=== PATIENT | female | born 1935 | race African-American/Black ===

== ENCOUNTER 2021-07-01 09:43 | Outpatient (CLI) | payer MEDICARE | END 2021-07-01 09:44 | disposition home or self-care (01) | LOC: MADRAD 09:43 | PROVIDERS: ATTEND Family Medicine | DX: M25.561 Pain in right knee (principal); G89.29 Other chronic pain ==

== ENCOUNTER 2022-02-22 14:35 | Outpatient (CLI) | payer MEDICARE | END 2022-02-22 14:36 | disposition home or self-care (01) | LOC: MADLAB 14:35 → MADRAD 14:36 | PROVIDERS: ATTEND Family Medicine | DX: M25.472 Effusion, left ankle (principal) ==

== ENCOUNTER 2023-04-25 12:04 | Inpatient (IN) | payer MEDICARE ==
[2023-04-25 14:47] VITALS: BMI 20.5
[2023-04-25] MEDS: Atorvastatin Calcium 10 MG TAB PO SCH (20:13)
[2023-04-25] MEDS: Metoprolol Tartrate 25 MG TAB PO SCH (20:14)
[2023-04-25] MEDS: traMADol HCl 50 MG TAB PO PRN (20:17)
[2023-04-26] MEDS: Levothyroxine Sodium 25 MCG TAB PO SCH (05:12)
[2023-04-26] MEDS: traMADol HCl 50 MG TAB PO PRN ×3 (05:20→20:40)
[2023-04-26] MEDS: Polyethylene Glycol 3350 17 GM Packet PO SCH (08:17)
[2023-04-26] MEDS: Aspirin 325 MG TAB PO SCH (08:18)
[2023-04-26] MEDS: Potassium Chloride 10 MEQ TAB PO SCH (08:18)
[2023-04-26] MEDS: Losartan 50 MG TAB PO SCH (08:18)
[2023-04-26] MEDS: Furosemide 20 MG TAB PO SCH (08:18)
[2023-04-26] MEDS: Metoprolol Tartrate 25 MG TAB PO SCH ×2 (08:18→20:41)
[2023-04-26] MEDS: Atorvastatin Calcium 10 MG TAB PO SCH (20:41)
[2023-04-27] MEDS: traMADol HCl 50 MG TAB PO PRN ×3 (04:58→20:56)
[2023-04-27] MEDS: Levothyroxine Sodium 25 MCG TAB PO SCH (04:59)
[2023-04-27] MEDS: Bisacodyl 5 MG TAB PO PRN (04:59)
[2023-04-27 07:28] LABS: Hematocrit 28.6 % (36.0-47.0); Hemoglobin 9.3 g/dL (12.0-16.0); Mean Corpuscular HGB CONC 32.4 g/dL (32.0-36.0); Mean Corpuscular Hemoglobin 29.2 pg (27.0-31.0); Mean Corpuscular Volume 89.9 fl (78.0-98.0); Mean Platelet Volume 6.7 fL (7.4-10.4); Platelet Count 147 10x3/uL (130-400); Red Blood Cell (RBC) Count 3.18 mill/uL (4.20-5.40); White Blood Cell (WBC) Count 9.1 10x3/uL (4.8-10.8)
[2023-04-27 07:39] LABS: Anion Gap 13 mmol/L (10-20); BUN (Urea Nitrogen) 10 mg/dL (9.8-20.1); Calc. Creatinine Clearance 50 mL/min (70-130); Calcium 9.1 mg/dL (7.8-10.44); Carbon Dioxide 31 mmol/L (23-31); Chloride 97 mmol/L (98-107); Estimated GFR 84; Glucose 145 mg/dL (83-110); Potassium 3.7 mmol/L (3.5-5.1); Sodium 137 mmol/L (136-145)
[2023-04-27] MEDS: Potassium Chloride 10 MEQ TAB PO SCH (09:39)
[2023-04-27] MEDS: Ferrous Gluconate 324 MG TAB PO SCH (09:39)
[2023-04-27] MEDS: Losartan 50 MG TAB PO SCH (09:40)
[2023-04-27] MEDS: Polyethylene Glycol 3350 17 GM Packet PO SCH (09:40)
[2023-04-27] MEDS: Metoprolol Tartrate 25 MG TAB PO SCH ×2 (09:40→20:54)
[2023-04-27] MEDS: Aspirin 325 MG TAB PO SCH (09:40)
[2023-04-27] MEDS: Furosemide 20 MG TAB PO SCH (09:40)
[2023-04-27] MEDS: Atorvastatin Calcium 10 MG TAB PO SCH (20:53)
[2023-04-27] MEDS: Acetaminophen 325 MG TAB PO PRN (20:57)
[2023-04-28] MEDS: Levothyroxine Sodium 25 MCG TAB PO SCH (04:46)
[2023-04-28] MEDS: traMADol HCl 50 MG TAB PO PRN ×2 (04:46→22:34)
[2023-04-28] MEDS ORDERED: Ondansetron ODT 4 MG TAB PO SCH (08:30)
[2023-04-28] MEDS: Ferrous Gluconate 324 MG TAB PO SCH (09:38)
[2023-04-28] MEDS: Furosemide 20 MG TAB PO SCH (09:38)
[2023-04-28] MEDS: Metoprolol Tartrate 25 MG TAB PO SCH ×2 (09:38→20:34)
[2023-04-28] MEDS: Potassium Chloride 10 MEQ TAB PO SCH (09:38)
[2023-04-28] MEDS: Polyethylene Glycol 3350 17 GM Packet PO SCH (09:38)
[2023-04-28] MEDS: Losartan 50 MG TAB PO SCH (09:38)
[2023-04-28] MEDS: Aspirin 325 MG TAB PO SCH (09:38)
[2023-04-28] MEDS: Bisacodyl 5 MG TAB PO PRN (13:24)
[2023-04-28] MEDS ORDERED: FLU VACC QS2023(65UP)/MF59C/PF 60 MCG/0.5 ML SYRINGE IM ONE (15:15)
[2023-04-28] MEDS: Atorvastatin Calcium 10 MG TAB PO SCH (20:34)
[2023-04-28] MEDS: Senokot S 8.6-50 MG TAB PO PRN (21:50)
[2023-04-29] MEDS: Acetaminophen 325 MG TAB PO PRN (03:33)
[2023-04-29] MEDS: Levothyroxine Sodium 25 MCG TAB PO SCH (06:02)
[2023-04-29] MEDS: Ferrous Gluconate 324 MG TAB PO SCH (09:15)
[2023-04-29] MEDS: Potassium Chloride 10 MEQ TAB PO SCH (09:15)
[2023-04-29] MEDS: Polyethylene Glycol 3350 17 GM Packet PO SCH (09:15)
[2023-04-29] MEDS: Losartan 50 MG TAB PO SCH (09:15)
[2023-04-29] MEDS: Aspirin 325 MG TAB PO SCH (09:15)
[2023-04-29] MEDS: Furosemide 20 MG TAB PO SCH (09:16)
[2023-04-29] MEDS: Metoprolol Tartrate 25 MG TAB PO SCH ×2 (09:16→20:45)
[2023-04-29] MEDS: Senokot S 8.6-50 MG TAB PO PRN ×2 (13:55→20:45)
[2023-04-29] MEDS: traMADol HCl 50 MG TAB PO PRN (20:45)
[2023-04-29] MEDS: Atorvastatin Calcium 10 MG TAB PO SCH (20:45)
[2023-04-30] MEDS: Levothyroxine Sodium 25 MCG TAB PO SCH (06:10)
[2023-04-30] MEDS ORDERED: Betamethasone 0.1% Cream 15 GM TUBE TOP PRN (07:05)
[2023-04-30] MEDS: Ferrous Gluconate 324 MG TAB PO SCH (08:52)
[2023-04-30] MEDS: Polyethylene Glycol 3350 17 GM Packet PO SCH (08:52)
[2023-04-30] MEDS: Furosemide 20 MG TAB PO SCH (08:52)
[2023-04-30] MEDS: Losartan 50 MG TAB PO SCH (08:52)
[2023-04-30] MEDS: Potassium Chloride 10 MEQ TAB PO SCH (08:52)
[2023-04-30] MEDS: Metoprolol Tartrate 25 MG TAB PO SCH ×2 (08:52→21:23)
[2023-04-30] MEDS: Aspirin 325 MG TAB PO SCH (08:52)
[2023-04-30] MEDS: Acetaminophen 325 MG TAB PO PRN ×2 (08:53→21:23)
[2023-04-30] MEDS: traMADol HCl 50 MG TAB PO PRN (18:01)
[2023-04-30] MEDS: Senokot S 8.6-50 MG TAB PO PRN ×2 (18:01→21:23)
[2023-04-30] MEDS: Atorvastatin Calcium 10 MG TAB PO SCH (21:23)
[2023-05-01] MEDS: traMADol HCl 50 MG TAB PO PRN ×2 (02:37→21:26)
[2023-05-01] MEDS: Levothyroxine Sodium 25 MCG TAB PO SCH (05:53)
[2023-05-01] MEDS: Metoprolol Tartrate 25 MG TAB PO SCH ×2 (08:22→21:15)
[2023-05-01] MEDS: Furosemide 20 MG TAB PO SCH (08:22)
[2023-05-01] MEDS: Losartan 50 MG TAB PO SCH (08:22)
[2023-05-01] MEDS: Polyethylene Glycol 3350 17 GM Packet PO SCH (08:23)
[2023-05-01] MEDS: Acetaminophen 325 MG TAB PO PRN ×2 (08:23→17:35)
[2023-05-01] MEDS: Aspirin 325 MG TAB PO SCH (08:23)
[2023-05-01] MEDS: Potassium Chloride 10 MEQ TAB PO SCH (08:23)
[2023-05-01] MEDS: Ferrous Gluconate 324 MG TAB PO SCH (08:23)
[2023-05-01] MEDS: Senokot S 8.6-50 MG TAB PO PRN ×2 (17:35→21:15)
[2023-05-01] MEDS: Atorvastatin Calcium 10 MG TAB PO SCH (21:15)
[2023-05-02] MEDS: Levothyroxine Sodium 25 MCG TAB PO SCH (05:46)
[2023-05-02] MEDS: traMADol HCl 50 MG TAB PO PRN ×2 (05:47→17:59)
[2023-05-02] MEDS: Polyethylene Glycol 3350 17 GM Packet PO SCH (09:33)
[2023-05-02] MEDS: Furosemide 20 MG TAB PO SCH (09:34)
[2023-05-02] MEDS: Aspirin 325 MG TAB PO SCH (09:34)
[2023-05-02] MEDS: Losartan 50 MG TAB PO SCH (09:34)
[2023-05-02] MEDS: Metoprolol Tartrate 25 MG TAB PO SCH ×2 (09:34→21:05)
[2023-05-02] MEDS: Ferrous Gluconate 324 MG TAB PO SCH (09:34)
[2023-05-02] MEDS: Potassium Chloride 10 MEQ TAB PO SCH (09:34)
[2023-05-02] MEDS: Atorvastatin Calcium 10 MG TAB PO SCH (21:05)
[2023-05-03] MEDS: Levothyroxine Sodium 25 MCG TAB PO SCH (05:20)
[2023-05-03] MEDS: traMADol HCl 50 MG TAB PO PRN ×2 (08:22→21:50)
[2023-05-03] MEDS: Potassium Chloride 10 MEQ TAB PO SCH (08:23)
[2023-05-03] MEDS: Polyethylene Glycol 3350 17 GM Packet PO SCH (08:23)
[2023-05-03] MEDS: Megestrol Acetate 400 MG/10 ML UDCUP PO SCH (08:23)
[2023-05-03] MEDS: Ferrous Gluconate 324 MG TAB PO SCH (08:23)
[2023-05-03] MEDS: Aspirin 325 MG TAB PO SCH (08:23)
[2023-05-03] MEDS: Furosemide 20 MG TAB PO SCH (08:24)
[2023-05-03] MEDS: Metoprolol Tartrate 25 MG TAB PO SCH ×2 (08:24→21:40)
[2023-05-03] MEDS: Losartan 50 MG TAB PO SCH (08:24)
[2023-05-03] MEDS: Simethicone Chewable 80 MG TAB PO PRN (13:24)
[2023-05-03] MEDS: Atorvastatin Calcium 10 MG TAB PO SCH (21:40)
[2023-05-03] MEDS: Acetaminophen 325 MG TAB PO PRN (21:40)
[2023-05-03] MEDS ORDERED: traMADol HCl 50 MG TAB ONE (21:48)
[2023-05-03] MEDS ORDERED: ALPRAZolam 0.25 MG TAB PO PRN (23:43)
[2023-05-03] MEDS ORDERED: Senokot S 8.6-50 MG TAB PO SCH (23:45)
[2023-05-03] MEDS ORDERED: ALPRAZolam 0.25 MG TAB PO SCH (23:45)
[2023-05-04] MEDS ORDERED: hydrOXYzine 25 MG TAB PO SCH (00:15)
[2023-05-04] MEDS: Melatonin 3 MG TAB PO PRN ×3 (01:56→23:37)
[2023-05-04] MEDS: Acetaminophen 325 MG TAB PO PRN ×3 (04:56→23:37)
[2023-05-04] MEDS: Levothyroxine Sodium 25 MCG TAB PO SCH (04:57)
[2023-05-04] MEDS: Aspirin 325 MG TAB PO SCH (09:41)
[2023-05-04] MEDS: Losartan 50 MG TAB PO SCH (09:41)
[2023-05-04] MEDS: Senokot S 8.6-50 MG TAB PO SCH ×2 (09:43→19:17)
[2023-05-04] MEDS: Metoprolol Tartrate 25 MG TAB PO SCH ×2 (09:43→19:17)
[2023-05-04] MEDS: Furosemide 20 MG TAB PO SCH (09:44)
[2023-05-04] MEDS: traMADol HCl 50 MG TAB PO PRN ×2 (09:47→20:12)
[2023-05-04] MEDS: Potassium Chloride 10 MEQ TAB PO SCH (11:16)
[2023-05-04] MEDS: Ferrous Gluconate 324 MG TAB PO SCH (11:16)
[2023-05-04] MEDS: Megestrol Acetate 400 MG/10 ML UDCUP PO SCH (11:16)
[2023-05-04] MEDS: Polyethylene Glycol 3350 17 GM Packet PO SCH (11:16)
[2023-05-04] MEDS ORDERED: Lantiseptic Ointment 130 GM JAR TOP PRN (18:10)
[2023-05-04] MEDS: Atorvastatin Calcium 10 MG TAB PO SCH (20:13)
[2023-05-05] MEDS: Acetaminophen 325 MG TAB PO PRN (05:02)
[2023-05-05] MEDS: Levothyroxine Sodium 25 MCG TAB PO SCH (05:02)
[2023-05-05] MEDS: Potassium Chloride 10 MEQ TAB PO SCH (09:11)
[2023-05-05] MEDS: Losartan 50 MG TAB PO SCH (09:11)
[2023-05-05] MEDS: Ferrous Gluconate 324 MG TAB PO SCH (09:11)
[2023-05-05] MEDS: Megestrol Acetate 400 MG/10 ML UDCUP PO SCH (09:11)
[2023-05-05] MEDS: Furosemide 20 MG TAB PO SCH (09:12)
[2023-05-05] MEDS: Senokot S 8.6-50 MG TAB PO SCH ×2 (09:12→20:29)
[2023-05-05] MEDS: Metoprolol Tartrate 25 MG TAB PO SCH ×2 (09:12→20:29)
[2023-05-05] MEDS: Aspirin 325 MG TAB PO SCH (09:12)
[2023-05-05] MEDS: Polyethylene Glycol 3350 17 GM Packet PO SCH (09:12)
[2023-05-05] MEDS: Atorvastatin Calcium 10 MG TAB PO SCH (20:29)
[2023-05-05] MEDS: traMADol HCl 50 MG TAB PO PRN (20:29)
[2023-05-06] MEDS: traMADol HCl 50 MG TAB PO PRN (03:18)
[2023-05-06] MEDS: Levothyroxine Sodium 25 MCG TAB PO SCH (05:11)
[2023-05-06 05:43] LABS: Hematocrit 24.2 % (36.0-47.0); Hemoglobin 7.7 g/dL (12.0-16.0); Mean Corpuscular HGB CONC 31.7 g/dL (32.0-36.0); Mean Corpuscular Hemoglobin 28.6 pg (27.0-31.0); Mean Corpuscular Volume 90.1 fl (78.0-98.0); Mean Platelet Volume 6.7 fL (7.4-10.4); Platelet Count 316 10x3/uL (130-400); RBC Distribution Width 12.8 % (11.5-14.5); Red Blood Cell (RBC) Count 2.68 mill/uL (4.20-5.40); White Blood Cell (WBC) Count 7.7 10x3/uL (4.8-10.8)
[2023-05-06] MEDS ORDERED: FLU VACC QS2023-24(6MOS UP)/PF 60 MCG/0.5 ML SYRINGE IM ONE ×2 (06:57→20:54)
[2023-05-06] MEDS: Simethicone Chewable 80 MG TAB PO PRN (09:38)
[2023-05-06] MEDS: Metoprolol Tartrate 25 MG TAB PO SCH ×2 (09:39→21:03)
[2023-05-06] MEDS: Megestrol Acetate 400 MG/10 ML UDCUP PO SCH (09:39)
[2023-05-06] MEDS: Ferrous Gluconate 324 MG TAB PO SCH (09:39)
[2023-05-06] MEDS: Aspirin 325 MG TAB PO SCH (09:39)
[2023-05-06] MEDS: Furosemide 20 MG TAB PO SCH (09:39)
[2023-05-06] MEDS: Losartan 50 MG TAB PO SCH (09:39)
[2023-05-06] MEDS: Polyethylene Glycol 3350 17 GM Packet PO SCH (09:40)
[2023-05-06] MEDS: Senokot S 8.6-50 MG TAB PO SCH ×2 (09:40→20:33)
[2023-05-06] MEDS: Potassium Chloride 10 MEQ TAB PO SCH (09:40)
[2023-05-06] MEDS: Meloxicam 7.5 MG TAB PO SCH ×2 (15:33→17:07)
[2023-05-06] MEDS ORDERED: traMADol HCl 50 MG TAB PO PRN (16:55)
[2023-05-06] MEDS: Acetaminophen 325 MG TAB PO PRN (21:04)
[2023-05-06] MEDS: Atorvastatin Calcium 10 MG TAB PO SCH (21:04)
[2023-05-07] MEDS ORDERED: FLU VACC QS2023-24(6MOS UP)/PF 60 MCG/0.5 ML SYRINGE IM ONE (01:59)
[2023-05-07] MEDS: Levothyroxine Sodium 25 MCG TAB PO SCH ×2 (06:55→07:47)
[2023-05-07 07:24] VITALS: BP 185/79; TEMP 97.7
[2023-05-07] MEDS: Polyethylene Glycol 3350 17 GM Packet PO SCH (07:47)
[2023-05-07] MEDS: Megestrol Acetate 400 MG/10 ML UDCUP PO SCH (07:47)
[2023-05-07] MEDS: Losartan 50 MG TAB PO SCH (07:47)
[2023-05-07] MEDS: Acetaminophen 325 MG TAB PO PRN (07:47)
[2023-05-07] MEDS: Ferrous Gluconate 324 MG TAB PO SCH (07:48)
[2023-05-07] MEDS: Furosemide 20 MG TAB PO SCH (07:49)
[2023-05-07] MEDS: Senokot S 8.6-50 MG TAB PO SCH (07:49)
[2023-05-07] MEDS: Metoprolol Tartrate 25 MG TAB PO SCH (07:49)
[2023-05-07] MEDS: Potassium Chloride 10 MEQ TAB PO SCH (07:49)
[2023-05-07] MEDS ORDERED: Meloxicam 7.5 MG TAB PO SCH (09:00)
== END 2023-05-07 09:40 | disposition home or self-care (01) | DRG 560 ==
LOC: MADMS 14:38
PROVIDERS: ADMIT Emergency Medicine; ATTEND Family Medicine
DX: Z47.1 Aftercare following joint replacement surgery (principal); E87.1 Hypo-osmolality and hyponatremia; R53.81 Other malaise; E78.5 Hyperlipidemia, unspecified; E03.9 Hypothyroidism, unspecified; I35.0 Nonrheumatic aortic (valve) stenosis; K59.03 Drug induced constipation; T40.2X5A Adverse effect of other opioids, initial encounter; E78.2 Mixed hyperlipidemia; E87.6 Hypokalemia; N18.2 Chronic kidney disease, stage 2 (mild); I12.9 Hypertensive chronic kidney disease with stage 1 through stage 4 chronic kidney disease, or unspecified chronic kidney disease; E11.22 Type 2 diabetes mellitus with diabetic chronic kidney disease; D63.1 Anemia in chronic kidney disease; M17.11 Unilateral primary osteoarthritis, right knee; R10.9 Unspecified abdominal pain; F41.9 Anxiety disorder, unspecified; G47.00 Insomnia, unspecified; D50.9 Iron deficiency anemia, unspecified; E63.9 Nutritional deficiency, unspecified; Z96.651 Presence of right artificial knee joint; R63.0 Anorexia; Z68.20 Body mass index [BMI] 20.0-20.9, adult; Z88.5 Allergy status to narcotic agent; Z88.2 Allergy status to sulfonamides; Z88.8 Allergy status to other drugs, medicaments and biological substances; Z79.890 Hormone replacement therapy; Z79.82 Long term (current) use of aspirin; Z79.899 Other long term (current) drug therapy; Z98.890 Other specified postprocedural states; Z86.73 Personal history of transient ischemic attack (TIA), and cerebral infarction without residual deficits
CPT/HCPCS: 36415; 74018; 80048; 85027; 90471; 90686; G0008; Q0162

== ENCOUNTER 2023-05-16 04:54 | Emergency (ER) | payer MEDICARE ==
[2023-05-16] MEDS ORDERED: Simethicone Chewable 80 MG TAB ONE (05:23)
[2023-05-16 05:43] LABS: #Eosinphils 0.1 thou/uL (0.0-0.7); #Monocytes 0.3 thou/uL (0.11-0.59); %Basophils 0.4 % (0.0-1.0); %Eosinophils 0.8 % (0.0-10.0); %Lymphocytes 13.8 % (21.0-51.0); Hematocrit 29.5 % (36.0-47.0); Hemoglobin 9.3 g/dL (12.0-16.0); Mean Corpuscular HGB CONC 31.5 g/dL (32.0-36.0); Mean Corpuscular Hemoglobin 28.4 pg (27.0-31.0); Mean Platelet Volume 6.8 fL (7.4-10.4); Platelet Count 330 10x3/uL (130-400); RBC Distribution Width 13.7 % (11.5-14.5); Red Blood Cell (RBC) Count 3.28 mill/uL (4.20-5.40); White Blood Cell (WBC) Count 7.4 10x3/uL (4.8-10.8)
[2023-05-16] MEDS ORDERED: Ondansetron PF 4 MG/2 ML Vial ONE (05:48)
[2023-05-16 05:57] LABS: ALT (SGPT) 26 U/L (8-55); AST (SGOT) 59 U/L (5-34); Alkaline Phosphatase 73 U/L (40-110); Anion Gap 14 mmol/L (10-20); BUN (Urea Nitrogen) 11 mg/dL (9.8-20.1); Bilirubin, Total 0.5 mg/dL (0.2-1.2); Calc. Creatinine Clearance 0 mL/min (70-130); Calcium 9.2 mg/dL (7.8-10.44); Carbon Dioxide 20 mmol/L (23-31); Chloride 108 mmol/L (98-107); Estimated GFR 81; Globulin 3.7 g/dL (2.4-3.5); Glucose 127 mg/dL (83-110); Potassium 3.9 mmol/L (3.5-5.1); Protein, Total 7.7 g/dL (5.8-8.1); Sodium 138 mmol/L (136-145)
[2023-05-16 07:00] LABS: Bilirubin Negative (Negative); Blood, Urine Trace (Negative); Clarity Clear (Clear); Glucose, Urine (Dipstick) Negative (Negative); Ketone, Urine Negative (Negative); Leukocyte Negative (Negative); Nitrite Negative (Negative); Protein, Urine (Dipstick) > or equal to 300 mg/dL (Neg-Trace); RBC/HPF 0-3 HPF (0-3); Urobilinogen 0.2 mg/dL (Less than 2); pH, Urine 5.5 (5.0-9.0)
[2023-05-16 07:01] LABS: Bacteria/HPF Rare-Few HPF (None Seen); CAUTI Indications for Culture Pelvic or flank pain; Squamous Epithelial 0-3 HPF (0-3); WBC/HPF 0-3 HPF (0-3)
[2023-05-16 07:02] LABS: Urine Culture Reflex No No
[2023-05-16] MEDS ORDERED: Iopamidol 370 76% 100 ML VIAL ONE (10:33)
== END 2023-05-16 07:16 | disposition home or self-care (01) ==
LOC: MADERS 04:54
DX: K92.2 Gastrointestinal hemorrhage, unspecified (principal); D50.0 Iron deficiency anemia secondary to blood loss (chronic); E11.9 Type 2 diabetes mellitus without complications; E03.9 Hypothyroidism, unspecified; E78.5 Hyperlipidemia, unspecified; I10 Essential (primary) hypertension; E78.00 Pure hypercholesterolemia, unspecified
CPT/HCPCS: 74177; 80053; 81001; 82274; 85025; 96374; J2405; Q9967

== ENCOUNTER 2023-06-16 22:04 | Emergency (ER) | payer MEDICARE ==
[2023-06-16] MEDS ORDERED: Acetaminophen 500 MG TAB ONE (22:42)
[2023-06-16] MEDS ORDERED: Ketorolac Tromethamine 30 MG/ML VIAL ONE (22:42)
[2023-06-17 00:42] LABS: #Basophils 0.1 thou/uL (0.0-0.2); #Lymphocytes 1.7 thou/uL (1.20-3.40); #Monocytes 0.5 thou/uL (0.11-0.59); #Neutrophils 5.5 thou/uL (1.40-6.50); %Basophils 0.6 % (0.0-1.0); %Eosinophils 0.5 % (0.0-10.0); %Lymphocytes 22.2 % (21.0-51.0); %Monocytes 6.2 % (0.0-10.0); %Neutrophils 70.4 % (42.0-75.0); Hematocrit 27.8 % (36.0-47.0); Hemoglobin 8.8 g/dL (12.0-16.0); Mean Corpuscular HGB CONC 31.5 g/dL (32.0-36.0); Mean Corpuscular Hemoglobin 29.2 pg (27.0-31.0); Mean Corpuscular Volume 92.7 fl (78.0-98.0); Mean Platelet Volume 8.3 fL (7.4-10.4); Platelet Count 185 10x3/uL (130-400); RBC Distribution Width 14.2 % (11.5-14.5); White Blood Cell (WBC) Count 7.8 10x3/uL (4.8-10.8)
[2023-06-17 00:52] LABS: INR-International Normal Ratio 1.1; Prothrombin Time 14.6 sec (12.0-14.7)
[2023-06-17 00:53] LABS: PTT 28.9 sec (22.9-36.1)
[2023-06-17 00:59] LABS: ALT (SGPT) 9 U/L (8-55); AST (SGOT) 15 U/L (5-34); Alkaline Phosphatase 55 U/L (40-110); Anion Gap 8 mmol/L (10-20); BUN (Urea Nitrogen) 12 mg/dL (9.8-20.1); Bilirubin, Total 0.4 mg/dL (0.2-1.2); Calc. Creatinine Clearance 0 mL/min (70-130); Calcium 8.8 mg/dL (7.8-10.44); Carbon Dioxide 24 mmol/L (23-31); Chloride 111 mmol/L (98-107); Estimated GFR 80; Globulin 2.8 g/dL (2.4-3.5); Glucose 97 mg/dL (83-110); Potassium 3.3 mmol/L (3.5-5.1); Protein, Total 6.9 g/dL (5.8-8.1); Sodium 140 mmol/L (136-145)
[2023-06-17 01:00] LABS: Albumin 4.1 g/dL (3.4-4.8)
== END 2023-06-17 02:36 | disposition home or self-care (01) ==
LOC: MADERS 22:04
DX: M25.552 Pain in left hip (principal); E11.9 Type 2 diabetes mellitus without complications; I10 Essential (primary) hypertension
CPT/HCPCS: 72170; 72192; 80053; 83605; 83735; 85025; 85610; 85730; 86850; 86900; 86901; 96372; J1885

== ENCOUNTER 2023-06-25 19:37 | Emergency (ER) | payer MEDICARE ==
[2023-06-25] MEDS ORDERED: Lidocaine 4% Patch ONE (20:32)
[2023-06-25 21:37] LABS: #Basophils 0.1 thou/uL (0.0-0.2); #Eosinphils 0.1 thou/uL (0.0-0.7); #Monocytes 0.6 thou/uL (0.11-0.59); #Neutrophils 7.8 thou/uL (1.40-6.50); %Basophils 0.7 % (0.0-1.0); %Eosinophils 0.7 % (0.0-10.0); %Lymphocytes 18.6 % (21.0-51.0); %Monocytes 5.9 % (0.0-10.0); %Neutrophils 74.1 % (42.0-75.0); Hematocrit 28.3 % (36.0-47.0); Mean Corpuscular HGB CONC 31.7 g/dL (32.0-36.0); Mean Corpuscular Hemoglobin 29.9 pg (27.0-31.0); Mean Corpuscular Volume 94.3 fl (78.0-98.0); Mean Platelet Volume 7.3 fL (7.4-10.4); Platelet Count 220 10x3/uL (130-400); RBC Distribution Width 14.8 % (11.5-14.5); White Blood Cell (WBC) Count 10.5 10x3/uL (4.8-10.8)
[2023-06-25 21:48] LABS: INR-International Normal Ratio 1.1; Prothrombin Time 14.1 sec (12.0-14.7)
[2023-06-25 21:49] LABS: PTT 28.7 sec (22.9-36.1)
[2023-06-25 21:55] LABS: Anion Gap 15 mmol/L (10-20); BUN (Urea Nitrogen) 18 mg/dL (9.8-20.1); Calc. Creatinine Clearance 0 mL/min (70-130); Calcium 8.9 mg/dL (7.8-10.44); Carbon Dioxide 19 mmol/L (23-31); Chloride 110 mmol/L (98-107); Estimated GFR 77; Glucose 111 mg/dL (83-110); Potassium 4.1 mmol/L (3.5-5.1); Sodium 140 mmol/L (136-145)
== END 2023-06-25 22:54 | disposition home or self-care (01) ==
LOC: MADERS 19:37
DX: S73.102A Unspecified sprain of left hip, initial encounter (principal); M79.81 Nontraumatic hematoma of soft tissue; I10 Essential (primary) hypertension; E11.9 Type 2 diabetes mellitus without complications; W18.30XA Fall on same level, unspecified, initial encounter
CPT/HCPCS: 36415; 72170; 80048; 85025; 85610; 85730